=== PATIENT | male | born 1975 | race Caucasian/White ===

== ENCOUNTER 2018-10-11 19:52 | Observation (INO) | payer OTHER, SELFPAY ==
--- NOTE | 2018-10-11 20:01 | DI.RAD.S_ITS ---
PROCEDURE: XR TOE RT MIN 2V INDICATIONS: deformed TECHNIQUE: 4 views of the right second toe(s) acquired. COMPARISON: None. FINDINGS: Bones: Dislocated right second toe at the level of the proximal interphalangeal joint with likely fracture of the head of the proximal phalanx. Overlying soft tissue edema. Remaining osseous structures appear intact. No suspicious bony lesions. Soft tissues: No suspicious soft tissue densities. IMPRESSION: Dislocated right second toe at the level of the proximal interphalangeal joint with likely associated fracture at the head of the second proximal phalanx. Dictated by: Atif Veliz M.D. on 10/11/2018 at 20:29 Approved by: Atif Veliz M.D. on 10/11/2018 at 20:32
[2018-10-11 20:02] VITALS: BMI 30.4
[2018-10-11 20:17] VITALS: BP 131/8; PULSE 81; RESP 15; TEMP 37.2; O2SAT 96
[2018-10-11] MEDS: BUPIVACAINE 0.5% MDV 6 ML SUBCUT (20:30)
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
[2018-10-11] MEDS: TET,DIPH,PERTUSS(ACELL),VAC/PF 0.5 ML SYRINGE IM (20:36)
[2018-10-11] MEDS: CEFAZOLIN 2 GM/100 ML FROZ.PIGGY IV (20:42)
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
[2018-10-11 22:45] VITALS: BP 134/76; PULSE 79; RESP 19; O2SAT 96
[2018-10-12] VITALS (14 sets, daily range): BP systolic 129–157; BP diastolic 70–98; PULSE 63–78; RESP 12–18; TEMP 36.4–37; O2SAT 94–98; BMI 32.7
[2018-10-12] MEDS: HYDROCODONE/ACET 5/325 TABLET 1 TAB PO ×2 (01:02→16:07)
[2018-10-12] MEDS: SODIUM CHLORIDE 0.9% 1,000 ML 125 ML IV ×2 (01:03→09:18)
--- NOTE | 2018-10-12 01:25 | PC.NURSE ---
0018 Admitted to room 212 diagnosed with Rt. 2nd toe dislocation. Rt foot covered with dressing CDI from ER & 2nd toe protruded. RLE elevated, pt. C/O shooting pain all the way to his Rt. leg. Ice pack applied & medicated with 1 tab. Vicodin with sips of water. Advised nothing to eat or drink. Also instructed to call for assistance. not to get up OOB & his activity is bedrest for now. Showed how to use his bed controls & call light. Will cont. POC & monitor.
[2018-10-12] MEDS: MORPHINE 2 MG/ML INJ IV ×2 (03:06→10:48)
--- NOTE | 2018-10-12 04:56 | PC.NURSE ---
[address] Bucio notified that pt. C/O pain even after medicated with 1 tab. Vicodin. Orders received to admin. Morphine IVP 2 mg. for moderate pain & 4 mg. for severe pain PRN. Q2hrs. 0306 pt. requested 2 mg. of Morphine IVP & when re-assessed pain level reported is down to 5 & a little better. Will monitor.
[2018-10-12] MEDS: MORPHINE 4 MG/ML INJ IV ×2 (05:19→08:04)
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
[2018-10-12] MEDS: LACTATED RINGERS 1,000 ML 42 ML IV (12:40)
--- NOTE | 2018-10-12 12:43 | PC.NURSE ---
Pt just left for surgery around 1235. Per he is going to have a pin placed in his toe and probably be discharged back home this afternoon.
[2018-10-12] MEDS: CEFAZOLIN 2 GM/100 ML FROZ.PIGGY IV (13:02)
--- NOTE | 2018-10-12 13:19 | SUR.OPER ---
Supine on padded OR bed, head on pillow, arms secured on padded arm boards at <90 degrees abduction, legs uncrossed, right leg is under control of surgeon, safety belt at thigh, tape over blanket over left lower leg.
--- NOTE | 2018-10-12 13:34 | SUR.OPER ---
Mini C arm 0.11
[2018-10-12] MEDS: BUPIVACAINE 0.25% W/ EPI 30 ML VIAL INJ (13:35)
--- NOTE | 2018-10-12 14:09 | PM.OP.1 ---
Operative Date/Time/Diagnoses Date of procedure: 10/12/18 Time of procedure: 13:00 Pre-op diagnosis: Open dislocation of the right 2nd toe Post-op diagnosis: same Procedure & Clinicians Procedure: Irrigation and debridement of open wound. Open reduction of 2nd toe PIP joint dislocation. Percutaneous pinning. Same procedure as scheduled: Yes Indications: Open 2nd toe dislocation Surgeon: Matthew Bucio Click Yes if Unassisted: Yes Anesthesia Type: General Operative Notes Findings: Open toe dislocation with a open volar wound. No sign of any tendon injury. No sign of any foreign bodies in the wound. Closure Type: primary Specimen(s): none sent Prosthetic devices, grafts, tissues, transplants, or devices: Single K-wire Applied: implant(s) Estimated Blood Loss (mL): 5 Blood products transfused: none Procedure in detail: On date of service, patient was met in the holding area. Surgeries once again discussed and any remaining questions or concerns were answered fully. Time-out was performed verifying patient's name, procedure and operative site. Patient was taken back to the operating theater placed on the operating table in a supine position. Great care was taken to ensure that all bony prominences were appropriately padded. Tourniquet was placed up along the upper calf. Right leg was prepped and draped in the normal sterile fashion. The leg was not exsanguinated and the tourniquet was not inflated. We started by irrigating the volar wound to the 2nd toe. No sign of any foreign bodies. The flexor tendon to the toe was intact. After copious irrigation the toe was then reduced. Before reduction the flexor tendons were retracted there was no sign of any obvious soft tissue interposition. Did not see any sign of the volar plate flipped into the joint. Unless we removed it from the joint when we retracted the flexor tendons. We are able to easily reduce the joint. But with range of motion of the toe it did want to read dislocate. Due to this fact it was decided to pin the joint. Under C-arm visualization the joint was reduced and held in a reduced position while a K-wire was passed across the joint holding the overall reduction. The wound was copiously irrigated again and closed loosely with 4 O nylon. The toe and the rest of the foot was cleaned, dried, and dressed. Patient was placed into a splint and was taken to the PACU in stable condition. Complications: none Condition: stable Disposition: PACU Plan for aftercare: Patient can be weight-bearing as tolerated in the splint.
[2018-10-12] MEDS: fentaNYL 100 MCG/2 ML INJ IV (14:20)
--- NOTE | 2018-10-12 14:36 | SUR.PHASEI ---
REPORT GIVEN TO JUAN MIGUEL ELKINS, PT TOLERATING JUICE, PUDDING AND CHEESE STICK, FOOT REMAINS ELEVATED ON PILLOWS, VSS
--- NOTE | 2018-10-12 14:50 | PC.NURSE ---
Pt is back from surgery at 1415. He is A&O3. BP 140s/90s. Pt has a splint with mae wrap on his lower extremity. He had a pinning in his toe. Pt will be discharged home in a couple of hours.
--- NOTE | 2018-10-12 16:52 | PC.NURSE ---
Discharge Note- Patient discharged home. Discharge paperwork, Rx's, instructions, and education reviewed with patient and spouse and signed. Patient packed up all personal belongings. Patient left via wheelchair to private car.
== END 2018-10-12 16:25 | disposition home or self-care (01) ==
LOC: ED 22:50 → AC 23:48
PROVIDERS: Admitting Provider Orthopaedic Surgery; Emergency Provider Nurse Practitioner; Visit Provider Orthopaedic Surgery
PROC: (CPT 28666; principal; 2018-10-12 12:25)
DX: S92.911B Unspecified fracture of right toe(s), initial encounter for open fracture (principal); W23.1XXA Caught, crushed, jammed, or pinched between stationary objects, initial encounter; Y93.19 Activity, other involving water and watercraft; Y92.828 Other wilderness area as the place of occurrence of the external cause; F17.210 Nicotine dependence, cigarettes, uncomplicated; Z23 Encounter for immunization
CPT/HCPCS: 28666; 28515; 36591; 64450; 73660; 90471; 96361; 96365; 96375; 96376; 99282; 99284; G0378; 90715; J0690; J2250; J2270; J2405; J2704; J3010

== ENCOUNTER 2018-10-27 18:49 | Observation (INO) | payer OTHER, SELFPAY ==
[2018-10-12 00:27] VITALS: BMI 32.7
[2018-10-27 19:02] VITALS: BP 139/90; PULSE 89; RESP 20; TEMP 36.7; O2SAT 96
--- NOTE | 2018-10-27 19:12 | DI.RAD.S_ITS ---
PROCEDURE: XR TOE RT MIN 2V INDICATIONS: previous fx, concern infection TECHNIQUE: 3 views of the right first second and third toe(s) acquired. COMPARISON: [facility], CR, XR TOE(S) RIGHT, 10/23/2018, 9:44. [facility], CR, XR TOE RT MIN 2V, 10/11/2018, 20:01. FINDINGS: Bones: No fractures or dislocations, but there is mild soft tissue swelling adjacent to the second digit, midshaft and proximal diaphysis. No suspicious bony lesions. A K wire maintains normal alignment after reduction of dislocation of the second middle phalanx seen on plain films . Soft tissues: No suspicious soft tissue densities. IMPRESSION: Infection is not seen but early infection frequently would be not identified by plain film imaging. Followup plain films likely are warranted. Dictated by: Mahesh Blount M.D. on 10/27/2018 at 19:48 Approved by: Mahesh Blount M.D. on 10/27/2018 at 19:51
[2018-10-27 19:59] LABS: Add Manual Diff / Slide Review NO; Basophils Absolute Auto 0 /uL (0-100); Basophils Percent Auto 0.4 % (0-2); Eosinophils Absolute Auto 300 /uL (0-450); Eosinophils Percent Auto 3.3 % (2-4); Hematocrit 42.9 % (41-53); Hemoglobin 14.8 g/dL (13.5-17.5); Lymphocytes Absolute Auto 2500 /uL (1100-4500); Lymphocytes Percent Auto 25.7 % (25-40); Mean Corpuscular HGB Conc 34.6 % (30-36); Mean Corpuscular Hemoglobin 31.6 PG (26-34); Mean Corpuscular Volume 91.3 fL (80-100); Monocytes Absolute Auto 700 /uL (0-900); Monocytes Percent Auto 7.2 % (3-14); Neutrophils Absolute Auto 6300 /uL (1500-7000); Neutrophils Percent Auto 63.4 % (50-75); Platelet Count 284 X10^3/uL (150-400); Red Cell Distribution Width 13.2 % (11.6-14.8); White Blood Cell Count 9.9 X10^3/uL (4.5-11.0)
--- NOTE | 2018-10-27 20:02 | ED.SKABFB ---
HPI - Skin/Abscess/Foreign Bdy <GEO Harrison - Last Filed: 10/27/18 21:15> General Chief complaint: Skin/Abscess/Foreign Body Stated complaint: recent toe fx,top of foot Pain increase,swelling Time Seen by Provider: 10/27/18 18:50 Source: patient and family Mode of arrival: ambulatory Limitations: no limitations History of Present Illness HPI narrative: The patient is a 43-year-old male an open fracture of his right 5th toe. This was surgically repaired on 10/12 [address] a [address]-wire place. He presents because his foot has become increasingly red and painful since yesterday. He reports fevers, vomiting, illness yesterday. Of note he did go swimming in a river. He states that when he went swimming in a river, his toe was wrapped in gauze and Kerlix. He did not change this after swimming. Does note some drainage since yesterday. The patient states he finished his course of cephalexin. Related Data Home Medications Medication Instructions Recorded Confirmed ibuprofen 400 mg PO Q6H PRN 10/27/18 10/27/18 Allergies Allergy/AdvReac Type Severity Reaction Status Date / Time Penicillins [PENICILLINS] Allergy Unknown Verified 06/25/18 11:18 Review of Systems <GEO Harrison - Last Filed: 10/27/18 21:15> Review of Systems GENERAL: see HPI HEENT: Denies sinus pain, ear pain, sore throat, difficulty swallowing, dizziness. RESPIRATORY: Denies dyspnea, cough, wheezing, hemoptysis, sputum. CARDIOVASCULAR: Denies chest pain, palpitations, orthopnea, edema, GASTROINTESTINAL: Denies nausea, vomiting, abdominal pain, diarrhea, constipation, melena. : Denies dysuria, frequency, incontinence, hematuria, urinary retention. MUSCULOSKELETAL: See HPI SKIN: See HPI NEUROLOGIC: Denies weakness, headache, numbness, change in speech, confusion, seizures, incoordination. PSYCHIATRIC: No concerning psychosocial issues. 12 point review of systems is negative except for those stated above PFSH <GEO Harrison - Last Filed: 10/27/18 21:15> Medical History Chronic back pain (Chronic ~2013) Chronic pain of right lower extremity (Chronic) H/O pyloric stenosis (Chronic) Hearing loss (Chronic) Nerve pain (Chronic) Shoulder pain, left (Chronic ~2014) Vision disorder (Chronic) Surgical History Anesthesia (Resolved) H/O lateral meniscus repair of left knee (Resolved ~2011) H/O lateral meniscus repair of right knee (Resolved ~2012) History of knee surgery (Resolved ~2013) Family History Father Hypertension Cancer Mother Total knee replacement status Social History household members: family and children Smoking Status: Current every day smoker Tobacco: How many years used: 8 alcohol intake: current Family History Father Hypertension Cancer Mother Total knee replacement status Social History household members: family and children Smoking Status: Current every day smoker Tobacco: How many years used: 8 alcohol intake: current Exam <GEO Harrison - Last Filed: 10/27/18 21:15> Narrative Exam Narrative: GENERAL: This is a well-nourished, well-developed patient, in no acute distress HEAD: Atraumatic. Normocephalic. No temporal or scalp tenderness. EYES: Pupils equal round and reactive. Extraocular motions intact. No scleral icterus. No injection or drainage. ENT: Nose without bleeding, purulent drainage or septal hematoma. Throat without erythema, tonsillar hypertrophy or exudate. Uvula midline. Airway patent. NECK: Trachea midline. No JVD or lymphadenopathy. Supple, nontender, no meningeal signs. CARDIOVASCULAR: Regular rate and rhythm RESPIRATORY: Clear to auscultation. Breath sounds equal bilaterally. No wheezes, rales, or rhonchi. No cough. No increased respiratory effort. No accessory muscle use. GASTROINTESTINAL: Abdomen soft, non-tender, nondistended. No hepato-splenomegaly, or palpable masses. No guarding. EXTREMITIES: Skin exam as documented. K-wire in place right 2nd toe. Pain to palpation right 2nd toe. BACK: Nontender without deformity or crepitance. No flank tenderness. NEURO: AOx3. SKIN: Erythematous 2nd toe of right foot, K-wire in place, erythema extending from right toe up over dorsal aspect of foot. Outlined in skin marker. Initial Vital Signs Initial Vital Signs: Vital Signs Temperature 98.0 F 10/27/18 19:02 Pulse Rate 89 10/27/18 19:02 Respiratory Rate 20 10/27/18 19:02 Blood Pressure 139/90 10/27/18 19:02 Pulse Oximetry 96 10/27/18 19:02 <Eyal Avila DO - Last Filed: 10/28/18 04:58> Initial Vital Signs Initial Vital Signs: Vital Signs Temperature 98.0 F 10/27/18 19:02 Pulse Rate 89 10/27/18 19:02 Respiratory Rate 20 10/27/18 19:02 Blood Pressure 139/90 10/27/18 19:02 Pulse Oximetry 96 10/27/18 19:02 Course <GEO Harrison - Last Filed: 10/27/18 21:15> Orders Ordered: ED Orders 10/27/18 21:25 Wound Culture and Gram Stain Stat Lactated Ringer's (Lactated Ringers) 1,000 mls @ 75 mls/hr IV CONT TRENT Last Admin: 10/27/18 23:00 Dose: 75 mls/hr Oxycodone HCl (Percolone) 5 mg PO Q3HR PRN PRN Reason: Pain, Moderate (4-6) Last Admin: 10/28/18 00:08 Dose: 5 mg Discontinued Medications Piperacillin/Tazobactam/Dextrose (Zosyn) 3.375 gm in 50 mls @ 100 mls/hr IV NOW ONE Stop: 10/27/18 21:33 Last Infusion: 10/27/18 21:51 Dose: 0 mls/hr Admin: 10/27/18 21:23 Dose: 100 mls/hr Vancomycin HCl/Dextrose (Vancomycin) 1,500 mg in 300 mls @ 200 mls/hr IV NOW ONE Stop: 10/27/18 22:33 Last Infusion: 10/27/18 21:59 Dose: 200 mls/hr Admin: 10/27/18 21:51 Dose: 200 mls/hr Ketorolac Tromethamine (Toradol) 30 mg IV NOW ONE Stop: 10/27/18 19:53 Last Admin: 10/27/18 20:15 Dose: 30 mg Morphine Sulfate (Morphine) 4 mg IV NOW ONE Stop: 10/27/18 21:06 Last Admin: 10/27/18 21:23 Dose: 4 mg Vital Signs - 8 hr 10/27/18 21:30 10/27/18 21:55 10/27/18 22:07 Temperature 97.7 F Pulse Rate 72 74 71 Respiratory Rate 16 16 18 Blood Pressure 140/89 Blood Pressure [Right Arm] 137/90 124/75 Pulse Oximetry 97 98 97 10/28/18 03:29 Temperature 97.4 F L Pulse Rate 69 Respiratory Rate 18 Blood Pressure 130/75 Blood Pressure [Right Arm] Pulse Oximetry 95 <Eyal Avila DO - Last Filed: 10/28/18 04:58> Orders Ordered: ED Orders 10/27/18 21:25 Wound Culture and Gram Stain Stat Lactated Ringer's (Lactated Ringers) 1,000 mls @ 75 mls/hr IV CONT TRENT Last Admin: 10/27/18 23:00 Dose: 75 mls/hr Oxycodone HCl (Percolone) 5 mg PO Q3HR PRN PRN Reason: Pain, Moderate (4-6) Last Admin: 10/28/18 00:08 Dose: 5 mg Discontinued Medications Piperacillin/Tazobactam/Dextrose (Zosyn) 3.375 gm in 50 mls @ 100 mls/hr IV NOW ONE Stop: 10/27/18 21:33 Last Infusion: 10/27/18 21:51 Dose: 0 mls/hr Admin: 10/27/18 21:23 Dose: 100 mls/hr Vancomycin HCl/Dextrose (Vancomycin) 1,500 mg in 300 mls @ 200 mls/hr IV NOW ONE Stop: 10/27/18 22:33 Last Infusion: 10/27/18 21:59 Dose: 200 mls/hr Admin: 10/27/18 21:51 Dose: 200 mls/hr Ketorolac Tromethamine (Toradol) 30 mg IV NOW ONE Stop: 10/27/18 19:53 Last Admin: 10/27/18 20:15 Dose: 30 mg Morphine Sulfate (Morphine) 4 mg IV NOW ONE Stop: 10/27/18 21:06 Last Admin: 10/27/18 21:23 Dose: 4 mg Vital Signs - 8 hr 10/27/18 21:30 10/27/18 21:55 10/27/18 22:07 Temperature 97.7 F Pulse Rate 72 74 71 Respiratory Rate 16 16 18 Blood Pressure 140/89 Blood Pressure [Right Arm] 137/90 124/75 Pulse Oximetry 97 98 97 10/28/18 03:29 Temperature 97.4 F L Pulse Rate 69 Respiratory Rate 18 Blood Pressure 130/75 Blood Pressure [Right Arm] Pulse Oximetry 95 MDM - Skin/Abscess/Foreign Bdy <ALONDRA Harrison-BC - Last Filed: 10/27/18 21:15> Lab Data Result diagrams: 10/27/18 19:47 10/27/18 19:47 Lab Results 10/27/18 10/27/18 10/27/18 Range/Units 19:47 19:47 19:47 WBC 9.9 (4.5-11.0) X10^3/uL RBC 4.70 (4.5-5.9) X10^6/uL Hgb 14.8 (13.5-17.5) g/dL Hct 42.9 (41-53) % MCV 91.3 (80-100) fL MCH 31.6 (26-34) PG MCHC 34.6 (30-36) % RDW 13.2 (11.6-14.8) % Plt Count 284 (150-400) X10^3/uL Neut % (Auto) 63.4 (50-75) % Lymph % (Auto) 25.7 (25-40) % Carver % (Auto) 7.2 (3-14) % Eos % (Auto) 3.3 (2-4) % Baso % (Auto) 0.4 (0-2) % Neut # (Auto) 6300 (4504-5637) /uL Lymph # (Auto) 2500 (5639-9341) /uL Carver # (Auto) 700 (0-900) /uL Eos # (Auto) 300 (0-450) /uL Baso # (Auto) 0 (0-100) /uL ESR (0-15) MM/HR Sodium 138 (137-145) mmol/L Potassium 3.9 (3.4-5.1) mmol/L Chloride 99 (98-107) mmol/L Carbon Dioxide 30 (22-32) mmol/L BUN 17 (9-20) mg/dL Creatinine 0.70 (0.66-1.25) mg/dL Estimated GFR > 60.0 (>60) mL/min BUN/Creatinine Ratio 24.3 H (6-22) Glucose 83 (70-100) mg/dL Lactate (0.7-2.1) mmol/L Calcium 9.1 (8.4-10.2) mg/dL Total Bilirubin 0.4 (0.2-1.3) mg/dL AST 43 (17-59) IU/L ALT 31 (21-72) IU/L Alkaline Phosphatase 69 (38-126) U/L C-Reactive Protein (<1.0) mg/dL Total Protein 7.4 (6.3-8.2) g/dL Albumin 4.4 (3.5-5.0) g/dL Globulin 3.0 (1.7-4.1) g/dL Albumin/Globulin Ratio 1.5 (1.0-2.8) Procalcitonin < 0.05 (<0.5) ng/mL 10/27/18 10/27/18 10/27/18 Range/Units 19:47 19:47 19:47 WBC (4.5-11.0) X10^3/uL RBC (4.5-5.9) X10^6/uL Hgb (13.5-17.5) g/dL Hct (41-53) % MCV (80-100) fL MCH (26-34) PG MCHC (30-36) % RDW (11.6-14.8) % Plt Count (150-400) X10^3/uL Neut % (Auto) (50-75) % Lymph % (Auto) (25-40) % Carver % (Auto) (3-14) % Eos % (Auto) (2-4) % Baso % (Auto) (0-2) % Neut # (Auto) (1971-0305) /uL Lymph # (Auto) (0599-0288) /uL Carver # (Auto) (0-900) /uL Eos # (Auto) (0-450) /uL Baso # (Auto) (0-100) /uL ESR 11 (0-15) MM/HR Sodium (137-145) mmol/L Potassium (3.4-5.1) mmol/L Chloride (98-107) mmol/L Carbon Dioxide (22-32) mmol/L BUN (9-20) mg/dL Creatinine (0.66-1.25) mg/dL Estimated GFR (>60) mL/min BUN/Creatinine Ratio (6-22) Glucose (70-100) mg/dL Lactate 0.8 (0.7-2.1) mmol/L Calcium (8.4-10.2) mg/dL Total Bilirubin (0.2-1.3) mg/dL AST (17-59) IU/L ALT (21-72) IU/L Alkaline Phosphatase (38-126) U/L C-Reactive Protein 2.8 H (<1.0) mg/dL Total Protein (6.3-8.2) g/dL Albumin (3.5-5.0) g/dL Globulin (1.7-4.1) g/dL Albumin/Globulin Ratio (1.0-2.8) Procalcitonin (<0.5) ng/mL Imaging Data Toe x-ray: Radiologist's impression: Praneeth Man 43 M [address] [address] XRay Report Signed Patient: Praneeth Man [facility]#: [id number] : 1975Acct:[id number] Age/Sex: 43 / MDate of Service: 10/27/18 Loc: ED Accession Number: [id number] Procedure: XR toe RT min 2V Ordering Provider: Bere Martines- PROCEDURE: XR TOE RT MIN 2V INDICATIONS: previous fx, concern infection TECHNIQUE: 3 views of the right first second and third toe(s) acquired. COMPARISON: [facility], CR, XR TOE(S) RIGHT, 10/23/2018, 9:44. [facility], CR, XR TOE RT MIN 2V, 10/11/2018, 20:01. FINDINGS: Bones: No fractures or dislocations, but there is mild soft tissue swelling adjacent to the second digit, midshaft and proximal diaphysis. No suspicious bony lesions. A K wire maintains normal alignment after reduction of dislocation of the second middle phalanx seen on plain films . Soft tissues: No suspicious soft tissue densities. IMPRESSION: Infection is not seen but early infection frequently would be not identified by plain film imaging. Followup plain films likely are warranted. Dictated by: Mahesh Blount M.D. on 10/27/2018 at 19:48 Approved by: Mahesh Blount M.D. on 10/27/2018 at 19:51 [facility] Narrative Medical decision making narrative: The patient is a 43 year male who presents with a chief complaint of a pain and erythema postoperative from Orthopedic surgery. The patient's exam is concerning for postoperative infection, possibly related to swimming in the river water with a K-wire in place. I spoke with Dr. Dickerson, who is on-call for [facility]. The K-wire was removed per her instructions without incident. Wound culture was taken. The patient was started on vanc and Zosyn. The patient states he does have an occasional rash from penicillins, but that is not hives and not anaphylaxis. Thus we elected to proceed with Zosyn treatment. The patient was admitted to Dr. Dickerson, placed under observation status. The patient states understanding and has no questions or concerns regarding this.. <Eyal Avila, DO - Last Filed: 10/28/18 04:58> Lab Data Lab Results 10/27/18 10/27/18 10/27/18 Range/Units 19:47 19:47 19:47 WBC 9.9 (4.5-11.0) X10^3/uL RBC 4.70 (4.5-5.9) X10^6/uL Hgb 14.8 (13.5-17.5) g/dL Hct 42.9 (41-53) % MCV 91.3 (80-100) fL MCH 31.6 (26-34) PG MCHC 34.6 (30-36) % RDW 13.2 (11.6-14.8) % Plt Count 284 (150-400) X10^3/uL Neut % (Auto) 63.4 (50-75) % Lymph % (Auto) 25.7 (25-40) % Carver % (Auto) 7.2 (3-14) % Eos % (Auto) 3.3 (2-4) % Baso % (Auto) 0.4 (0-2) % Neut # (Auto) 6300 (6266-7798) /uL Lymph # (Auto) 2500 (5365-1807) /uL Carver # (Auto) 700 (0-900) /uL Eos # (Auto) 300 (0-450) /uL Baso # (Auto) 0 (0-100) /uL ESR (0-15) MM/HR Sodium 138 (137-145) mmol/L Potassium 3.9 (3.4-5.1) mmol/L Chloride 99 (98-107) mmol/L Carbon Dioxide 30 (22-32) mmol/L BUN 17 (9-20) mg/dL Creatinine 0.70 (0.66-1.25) mg/dL Estimated GFR > 60.0 (>60) mL/min BUN/Creatinine Ratio 24.3 H (6-22) Glucose 83 (70-100) mg/dL Lactate (0.7-2.1) mmol/L Calcium 9.1 (8.4-10.2) mg/dL Total Bilirubin 0.4 (0.2-1.3) mg/dL AST 43 (17-59) IU/L ALT 31 (21-72) IU/L Alkaline Phosphatase 69 (38-126) U/L C-Reactive Protein (<1.0) mg/dL Total Protein 7.4 (6.3-8.2) g/dL Albumin 4.4 (3.5-5.0) g/dL Globulin 3.0 (1.7-4.1) g/dL Albumin/Globulin Ratio 1.5 (1.0-2.8) Procalcitonin < 0.05 (<0.5) ng/mL 10/27/18 10/27/18 10/27/18 Range/Units 19:47 19:47 19:47 WBC (4.5-11.0) X10^3/uL RBC (4.5-5.9) X10^6/uL Hgb (13.5-17.5) g/dL Hct (41-53) % MCV (80-100) fL MCH (26-34) PG MCHC (30-36) % RDW (11.6-14.8) % Plt Count (150-400) X10^3/uL Neut % (Auto) (50-75) % Lymph % (Auto) (25-40) % Carver % (Auto) (3-14) % Eos % (Auto) (2-4) % Baso % (Auto) (0-2) % Neut # (Auto) (9889-9213) /uL Lymph # (Auto) (0512-0147) /uL Carver # (Auto) (0-900) /uL Eos # (Auto) (0-450) /uL Baso # (Auto) (0-100) /uL ESR 11 (0-15) MM/HR Sodium (137-145) mmol/L Potassium (3.4-5.1) mmol/L Chloride (98-107) mmol/L Carbon Dioxide (22-32) mmol/L BUN (9-20) mg/dL Creatinine (0.66-1.25) mg/dL Estimated GFR (>60) mL/min BUN/Creatinine Ratio (6-22) Glucose (70-100) mg/dL Lactate 0.8 (0.7-2.1) mmol/L Calcium (8.4-10.2) mg/dL Total Bilirubin (0.2-1.3) mg/dL AST (17-59) IU/L ALT (21-72) IU/L Alkaline Phosphatase (38-126) U/L C-Reactive Protein 2.8 H (<1.0) mg/dL Total Protein (6.3-8.2) g/dL Albumin (3.5-5.0) g/dL Globulin (1.7-4.1) g/dL Albumin/Globulin Ratio (1.0-2.8) Procalcitonin (<0.5) ng/mL Discharge Plan Departure Patient Disposition: Admitted as Observation Clinical Impression: Post-operative infection Qualifiers: Encounter type: initial encounter Postoperative infection type: unspecified type Qualified Code(s): T81.40XA - Infection following a procedure, unspecified, initial encounter Discharge Date/Time: 10/27/18 22:00 Interventions: ED Discharge Assessment Last Done: 10/27/18 21:58 Admit Date/Time: 10/27/18 20:47 Admit Provider: Bobbi Dolan <Eyal Avila DO - Last Filed: 10/28/18 04:58> Cosign ED Attending Cosignature Attestation: I was immediately available in the department for consultation. Documentation has been reviewed. I agree with assessment and plan.
[2018-10-27 20:08] LABS: Lactate (Lactic Acid) 0.8 mmol/L (0.7-2.1)
[2018-10-27 20:12] LABS: Alanine Aminotransferase 31 IU/L (21-72); Albumin 4.4 g/dL (3.5-5.0); Albumin Globulin Ratio 1.5 (1.0-2.8); Alkaline Phosphatase 69 U/L (38-126); Aspartate Aminotransferase 43 IU/L (17-59); BUN Creatinine Ratio 24.3 (6-22); Bilirubin Total 0.4 mg/dL (0.2-1.3); Blood Urea Nitrogen 17 mg/dL (9-20); Calcium 9.1 mg/dL (8.4-10.2); Carbon Dioxide 30 mmol/L (22-32); Chloride 99 mmol/L (98-107); Estimated Glomerular Filt Rate > 60.0 mL/min (>60); Glucose 83 mg/dL (70-100); HEMOLYSIS < 15 (0-50); Potassium 3.9 mmol/L (3.4-5.1); Sodium 138 mmol/L (137-145); Total Protein 7.4 g/dL (6.3-8.2)
[2018-10-27] MEDS: KETOROLAC 60 MG/2 ML VIAL 30 MG IV (20:15)
[2018-10-27 20:16] LABS: C-Reactive Protein Quant 2.8 mg/dL (<1.0)
[2018-10-27 20:22] VITALS: BP 129/76; PULSE 78; RESP 18; O2SAT 97
[2018-10-27 20:31] LABS: Procalcitonin < 0.05 ng/mL (<0.5)
[2018-10-27 20:32] LABS: Erythrocyte Sedimentation Rate 11 MM/HR (0-15)
[2018-10-27] MEDS: PIPERACILLIN-TAZO 3.375 GM/50 ML FROZ.PIGGY IV (21:23)
[2018-10-27] MEDS: MORPHINE 4 MG/ML INJ IV (21:23)
--- NOTE | 2018-10-27 21:28 | PC.NURSE ---
report called to feliciano, inpatient rn, will get 1st antibx started, then transport
[2018-10-27 21:30] VITALS: BP 137/90; PULSE 72; RESP 16; O2SAT 97
[2018-10-27] MEDS: VANCOMYCIN 1,500 MG/300 ML FROZ.PIGGY 200 MG IV (21:51)
[2018-10-27 21:55] VITALS: BP 124/75; PULSE 74; RESP 16; O2SAT 98
[2018-10-27 22:07] VITALS: BP 140/89; PULSE 71; RESP 18; TEMP 36.5; O2SAT 97
[2018-10-27 22:09] VITALS: BMI 32.2
--- NOTE | 2018-10-27 22:21 | PC.ADMIT ---
Pt to AC from ER, transferred via stretcher. Pain 3/10, decreased since pain meds administered in ER. Oriented to room/call light. Denies need to lock any belongings in safe. Bed alarm on. [address] Admission Note: The patient,Praneeth Man,43 y/o, was given written information regarding hospital policies, unit procedures and contact persons. Patient's smoking status: Current every day smoker. Vital Signs - 8 hr 10/27/18 19:02 10/27/18 20:22 10/27/18 21:30 Temperature 98.0 F Pulse Rate 89 78 72 Respiratory Rate 20 18 16 Blood Pressure 139/90 Blood Pressure [Left Arm] 129/76 Blood Pressure [Right Arm] 137/90 Pulse Oximetry 96 97 97 10/27/18 21:55 Temperature Pulse Rate 74 Respiratory Rate 16 Blood Pressure Blood Pressure [Left Arm] Blood Pressure [Right Arm] 124/75 Pulse Oximetry 98
[2018-10-27] MEDS: LACTATED RINGERS 1,000 ML 75 ML IV (23:00)
--- NOTE | 2018-10-27 23:21 | PC.NURSE ---
Evening Shift Note- Patient arrived to room via stretcher at 2205 from ER. Patient able to walk on his own from stretcher to bed. Admission questions done, home medications reviewed, and physical assessment completed. Patient oriented to bed and bed controls, room, bathroom, lights, menu, and call liang/tv remote. No complaints of pain or discomfort. No complaints of N/V. Elevated RLE up on pillow, place cradle on bed to keep blanket off foot. ER reported reddness to right foot that was marked, No redness noted with assessement at this time. IV fluids started as ordered. Safety measures in place. Patient agree to call for assistance. call garth and diego within reach. will continue to monitor.
[2018-10-28] MEDS: OXYCODONE IR 5 MG TABLET PO ×3 (00:08→11:42)
--- NOTE | 2018-10-28 03:27 | PC.NURSE ---
Shift note: Pt's preliminary micro shows gram positive cocci, pt put on contact precautions pending culture and sensitivities to r/o MRSA.
[2018-10-28 03:29] VITALS: BP 130/75; PULSE 69; RESP 18; TEMP 36.3; O2SAT 95
[2018-10-28] MEDS: PIPERACILLIN-TAZO 3.375 GM/50 ML FROZ.PIGGY IV (08:05)
--- NOTE | 2018-10-28 08:28 | PM.HP.1 ---
History of Present Illness Date Patient Seen: 10/28/18 Time Patient Seen: 08:28 Chief complaint: recent toe fx,top of foot Pain increase,swelling Narrative: Patient is a 43-year-old male with a history of a open right 2nd toe PIP dislocation status post irrigation debridement and pinning by Dr. Bucio on 10/12/2018. Patient states his wound had healed and sutures had been removed. His pin was retained. He does think it was starting to get red before but then 1 day prior to admission the patient went swimming in the river with his K-wire in place. After that time he experienced more pain more swelling and redness extending up the toe and over the dorsum of the foot. Denies any fevers or chills. Presented to the emergency room where he was found to have elevated inflammatory markers CRP 2.8. He was afebrile but had a cellulitis over the 2nd toe extending up over the dorsum of the foot with areas demarcated an ascending fashion. There was small amount of purulence drainage at the pin site. Patient received vancomycin and Zosyn in the emergency room and is admitted for observation. At the request the orthopedic surgeon the K-wire was removed. On evaluation this morning patient does state that his pain has improved and the swelling and erythema does seem to be improving after antibiotics Patient History Medical History Chronic back pain (Chronic ~2013) Chronic pain of right lower extremity (Chronic) H/O pyloric stenosis (Chronic) Hearing loss (Chronic) Nerve pain (Chronic) Shoulder pain, left (Chronic ~2014) Vision disorder (Chronic) Surgical History Anesthesia (Resolved) H/O lateral meniscus repair of left knee (Resolved ~2011) H/O lateral meniscus repair of right knee (Resolved ~2012) History of knee surgery (Resolved ~2013) Family History Father Hypertension Cancer Mother Total knee replacement status Social History household members: family and children Smoking Status: Current every day smoker Tobacco: How many years used: 8 alcohol intake: current Family & Social History Family History Father Hypertension Cancer Mother Total knee replacement status Social History: household members family,children Prior Living Arrangements House Safety & Behavioral: Feels Safe in Current Yes Environment Been Physically Hurt or No Threatened By a Person Suicidal Ideation Description None Tobacco & Substance use: Tobacco type cigarettes Smoking Status Current every day smoker alcohol intake current alcohol intake frequency a few times a week Substance Use Type does not use Meds Home Medications Medication Instructions Recorded Confirmed Type ibuprofen 400 mg PO Q6H PRN 10/27/18 10/27/18 History Allergies Allergy/AdvReac Type Severity Reaction Status Date / Time Penicillins [PENICILLINS] Allergy Unknown Verified 06/25/18 11:18 Review of Systems Review of Systems Denies fevers chills nausea vomiting. Endorses pain swelling erythema the right foot as described. All systems reviewed & are unremarkable except as noted in HPI and below Exam Vital Signs (past 8 hours): - 10/28/18 03:29 Temperature 97.4 F L Pulse Rate 69 Respiratory Rate 18 Blood Pressure 130/75 Pulse Oximetry 95 Oxygen Delivery Method Room Air Narrative Exam Narrative: Alert oriented male in no acute distress lungs clear to auscultation bilaterally. Heart regular rate and rhythm. Vital signs stable. Afebrile. Abdomen soft nontender moving in all extremities. 5/5 strength and normal range of motion. Right foot 2nd toe shows moderate swelling and erythema has receded within demarcation lines over the dorsum of the foot. No fluctuance. No expressible drainage. There is small amount of dried drainage at the site of the pin removal dorsally. Toe in good clinical alignment. Sensation grossly intact to light touch. Brisk capillary refill Objective Labs Result Diagrams: 10/27/18 19:47 10/27/18 19:47 Labs: Laboratory Results - last 24 hr 10/27/18 10/27/18 10/27/18 19:47 19:47 19:47 WBC 9.9 RBC 4.70 Hgb 14.8 Hct 42.9 MCV 91.3 MCH 31.6 MCHC 34.6 RDW 13.2 Plt Count 284 Neut % (Auto) 63.4 Lymph % (Auto) 25.7 [place] % (Auto) 7.2 Eos % (Auto) 3.3 Baso % (Auto) 0.4 Neut # (Auto) 6300 Lymph # (Auto) 2500 [place] # (Auto) 700 Eos # (Auto) 300 Baso # (Auto) 0 ESR Sodium 138 Potassium 3.9 Chloride 99 Carbon Dioxide 30 BUN 17 Creatinine 0.70 Estimated GFR > 60.0 BUN/Creatinine Ratio 24.3 H Glucose 83 Lactate Calcium 9.1 Total Bilirubin 0.4 AST 43 ALT 31 Alkaline Phosphatase 69 C-Reactive Protein Total Protein 7.4 Albumin 4.4 Globulin 3.0 Albumin/Globulin Ratio 1.5 Procalcitonin < 0.05 10/27/18 10/27/18 10/27/18 19:47 19:47 19:47 WBC RBC Hgb Hct MCV MCH MCHC RDW Plt Count Neut % (Auto) Lymph % (Auto) [place] % (Auto) Eos % (Auto) Baso % (Auto) Neut # (Auto) Lymph # (Auto) [place] # (Auto) Eos # (Auto) Baso # (Auto) ESR 11 Sodium Potassium Chloride Carbon Dioxide BUN Creatinine Estimated GFR BUN/Creatinine Ratio Glucose Lactate 0.8 Calcium Total Bilirubin AST ALT Alkaline Phosphatase C-Reactive Protein 2.8 H Total Protein Albumin Globulin Albumin/Globulin Ratio Procalcitonin Assessment & Plan (1) Cellulitis of foot: Problem details: Patient has right foot and 2nd toe cellulitis. He was exposed to river water with a K-wire in place and has a history of an open dislocation of his PIP joint. We discussed that in the face of infection the wire must be removed. We discussed this may lead to a reduce placement and permanent hammertoe deformity of the toe. This may be prevented by briana taping. If deformity does develop then late correction of the deformity can be performed through a PIP fusion or arthroplasty. We discussed the focus at this time is eradication of infection and prevent any deep infection or osteomyelitis. The patient will receive another dose of IV antibiotics and if continues to improve will be discharged on oral antibiotics this afternoon. Patient will have a wound check in 1 week. Patient understands and agrees with the plan. We discussed that refer water contamination can be a potentially serious infection but at this time the patient has no evidence of abscess or indication for open debridement. Wound culture from the ER growing GPCs Will discharge on coverage for both staph and Pseudomonas Bactrim DS b.i.d. x2 weeks Ciprofloxacin 750 mg p.o. b.i.d. x2 weeks Weight bear as tolerated Current visit: Yes Status: Acute Quality VTE Deep Vein Thrombosis/Pulmonary Embolism Present on Admission: No
[2018-10-28 09:00] VITALS: BP 104/69; PULSE 64; RESP 16; TEMP 36.6; O2SAT 96
[2018-10-28] MEDS: VANCOMYCIN 1,500 MG/300 ML FROZ.PIGGY 200 MG IV (09:23)
--- NOTE | 2018-10-28 11:45 | PC.NURSE ---
Discharge Pt states pain controlled with oxy. up independently in room, pt safe to stand up by himself. no drainage on toe. Redness receded well within demarcation on foot. Received one final dose of IV vanco and zosyn. Tolerated without issue. PIV removed prior to d/c. d/c instructions provided to pt. Aware to contact MD to make f/u apt in 1 week and also if any questions or concerns. Pt states he took all belongings with him. left in w/c with [employer] escort.
--- NOTE | 2018-10-28 17:08 | CM.DANOTE ---
Discharge Planning/Care Management DCP: assessment: case received, EMR reviewed. Discussed in Team Rounds. Pt is a 43 year old male who admitted last night to care orthopedic surgeon Dr. Johnathan Dolan. Payer: [employer] RN coordinator Emily Berrios confirmed that pt was up independently in room and was just to have a final IV antibiotic dose this morning and then would go home on oral antibiotics later in the afternoon. A check in early afternoon showed that pt had left for home setting at 1145. Care team members noted no d/c planning concerns. He will follow up in clinic. Advanced directive, confirm from FAMILY Start: 10/27/18 22:19 Freq: Q24H Status: Discharge Protocol: Document 10/27/18 22:19 AGW (Rec: 10/27/18 23:17 AGW [id number]) Advance Directive, confirm on record Time 22:00 Person contacted patient Copy received No CM Discharge Assessment Start: 10/28/18 17:07 Freq: Status: Active Protocol: Document 10/28/18 17:07 ITV (Rec: 10/28/18 17:08 ITV [id number]) Discharge Planning Assessment Advance Directives? No Advance Directives on File No History Provided By Medical Record Prior Living Arrangements House Household Members family children Independent with ADL's Yes Is patient alert and oriented? Yes Review Status In Process
== END 2018-10-28 11:45 | disposition home or self-care (01) ==
LOC: ED 18:52 → AC 20:48
PROVIDERS: Admitting Provider Orthopaedic Surgery Foot and Ankle Surgery; Emergency Provider Nurse Practitioner Family; Visit Provider Orthopaedic Surgery Foot and Ankle Surgery
DX: L03.031 Cellulitis of right toe (principal); B96.89 Other specified bacterial agents as the cause of diseases classified elsewhere; S93.11 Dislocation of interphalangeal joint; F17.200 Nicotine dependence, unspecified, uncomplicated
CPT/HCPCS: 36591; 73660; 80053; 83605; 84145; 85025; 85651; 86140; 87070; 87075; 87077; 87147; 87186; 87205; 96365; 96375; 99283; 99284; G0378; J1885; J2270; J2543

== ENCOUNTER → 2019-06-04 16:00 | Outpatient (CLI) | payer OTHER, SELFPAY ==
[2019-06-04 17:10] LABS: Influenza A - CEPHEID Flu A NEGATIVE (NEGATIVE); Influenza B - CEPHEID Flu B NEGATIVE (NEGATIVE)
[2019-06-06 04:07] LABS: COVID19 Sendout Not Detected (Not Detected)
== END ==
PROVIDERS: Visit Provider Physician Assistant
DX: Z20.828 Contact with and (suspected) exposure to other viral communicable diseases (principal)
CPT/HCPCS: 87502; 87635

== ENCOUNTER 2020-03-20 11:59 | Emergency (ER) | payer OTHER, MEDICAID, SELFPAY ==
[2020-03-20] VITALS (12 sets, daily range): BP systolic 131–168; BP diastolic 79–106; PULSE 78–88; RESP 16–25; TEMP 36.9; O2SAT 95–99; BMI 30.8
--- NOTE | 2020-03-20 12:07 | DI.RAD.S_ITS ---
PROCEDURE: XR CHEST 1V INDICATIONS: chest pain TECHNIQUE: One view of the chest was acquired. COMPARISON: [facility], , CHEST 2 VIEW, 12/05/2016, 18:21. FINDINGS: Surgical changes and devices: None. Lungs and pleura: Lungs are clear. No pleural effusions or pneumothorax. Mediastinum: Mediastinal contours appear normal. Heart size is normal. Bones and chest wall: No suspicious bony lesions. Overlying soft tissues appear unremarkable. IMPRESSION: No acute cardiopulmonary abnormality. Dictated by: Kike Mcqueen M.D. on 03/20/2020 at 12:39 Approved by: Kike Mcqueen M.D. on 03/20/2020 at 12:40
[2020-03-20 12:24] LABS: Add Manual Diff / Slide Review NO; Basophils Absolute Auto 100 /uL (0-100); Eosinophils Absolute Auto 200 /uL (0-450); Eosinophils Percent Auto 2.5 % (2-4); Hematocrit 44.8 % (41-53); Hemoglobin 15.6 g/dL (13.5-17.5); Lymphocytes Absolute Auto 2500 /uL (1100-4500); Lymphocytes Percent Auto 26.9 % (25-40); Mean Corpuscular HGB Conc 34.7 % (30-36); Mean Corpuscular Hemoglobin 31.3 PG (26-34); Mean Corpuscular Volume 90.1 fL (80-100); Monocytes Absolute Auto 1000 /uL (0-900); Monocytes Percent Auto 10.1 % (3-14); Neutrophils Absolute Auto 5600 /uL (1500-7000); Neutrophils Percent Auto 59.5 % (50-75); Platelet Count 266 X10^3/uL (150-400); Red Blood Cell Count 4.97 X10^6/uL (4.5-5.9); Red Cell Distribution Width 13.1 % (11.6-14.8); White Blood Cell Count 9.4 X10^3/uL (4.5-11.0)
[2020-03-20 12:27] LABS: INR 0.9 (0.9-1.3); Prothrombin Time 10.9 SECONDS (10.1-12.7)
[2020-03-20 12:30] LABS: PTT Partial Thromboplastin Tim 33 SECONDS (26.4-36.2)
[2020-03-20 12:58] LABS: Alanine Aminotransferase 23 IU/L (<50); Albumin 4.6 g/dL (3.5-5.0); Albumin Globulin Ratio 1.4 (1.0-2.8); Alkaline Phosphatase 57 U/L (38-126); Aspartate Aminotransferase 37 IU/L (17-59); Bilirubin Total 0.6 mg/dL (0.2-1.3); Blood Urea Nitrogen 19 mg/dL (9-20); Calcium 9.5 mg/dL (8.4-10.2); Carbon Dioxide 27 mmol/L (22-32); Chloride 104 mmol/L (98-107); Creatine Kinase 126 U/L (55-170); Estimated Glomerular Filt Rate > 60.0 mL/min (>60); Globulin 3.3 g/dL (1.7-4.1); Glucose 100 mg/dL (70-100); Lipase 56 U/L (23-300); Potassium 4.3 mmol/L (3.4-5.1); Sodium 136 mmol/L (137-145); Total Protein 7.9 g/dL (6.3-8.2)
--- NOTE | 2020-03-20 13:01 | ED_ITS ---
HPI - Chest Pain <ALONDRA Harrison-BC - Last Filed: 03/20/20 15:55> General Chief Complaint: Chest Pain Stated Complaint: Chest Pain Time Seen by Provider: 03/20/20 12:27 Source: patient Mode of arrival: Ambulatory Limitations: no limitations History of Present Illness HPI narrative: The patient is a 45-year-old male current smoker with history of cellulitis of the foot and postoperative infection who presents with a chief complain of chest pain that started yesterday. He states it hurts at his sternum, nonradiating. Hurts worse to press on it, move and with pressure and change of position. He states it hurts when he takes a deep breath in his sternum. Denies any fevers nausea vomiting or diarrhea. Developed a cough this morning denies any palpitations or swelling of his extremities. Denies any lightheadedness or dizziness. Has tried ibuprofen and Aleve at the same time for the pain, last dose this morning with no improvement. Related Data Previous Rx's Medication Instructions Recorded albuterol sulfate 90 mcg/actuation 2 puff INHALATION Q4-6H PRN #18 06/04/19 aerosol inhaler gram hydrocodone-acetaminophen [Waverly] 1 tab PO Q4-6H PRN #10 tab 03/20/20 ketorolac 10 mg PO TID PRN #15 tab 03/20/20 lidocaine 1 patch TOPICAL DAILY PRN #15 ea 03/20/20 Allergies Allergy/AdvReac Type Severity Reaction Status Date / Time Penicillins [PENICILLINS] Allergy Unknown Verified 03/20/20 12:03 Review of Systems <GEO Harrison - Last Filed: 03/20/20 15:55> Review of Systems Narrative: GENERAL: Denies chills, fatigue, malaise, fever, sweats. HEENT: Denies sinus pain, ear pain, sore throat, difficulty swallowing, dizziness. RESPIRATORY: Denies dyspnea, cough, wheezing, hemoptysis, sputum. CARDIOVASCULAR: See HPI GASTROINTESTINAL: Denies nausea, vomiting, abdominal pain, diarrhea, constipation, melena. : Denies dysuria, frequency, incontinence, hematuria, urinary retention. MUSCULOSKELETAL: See HPI SKIN: Denies rash, skin lesions, or other NEUROLOGIC: Denies weakness, headache, numbness, change in speech, confusion, seizures, incoordination. PSYCHIATRIC: No concerning psychosocial issues. 12 point review of systems is negative except for those stated above Patient History <GEO Harrison - Last Filed: 03/20/20 15:55> Medical History (Updated 03/20/20 @ 15:51 by GEO Harrison) Chronic back pain (~2013) Chronic pain of right lower extremity H/O pyloric stenosis Hearing loss Nerve pain Shoulder pain, left (~2014) Vision disorder Surgical History Anesthesia H/O lateral meniscus repair of left knee (~2011) H/O lateral meniscus repair of right knee (~2012) History of knee surgery (~2013) Family History Father Hypertension Cancer Mother Total knee replacement status Social History household members: family and children Smoking Status: Current every day smoker Tobacco: How many years used: 8 alcohol intake: current Smoking Status: Current every day smoker alcohol intake frequency: a few times a week Substance Use Type: does not use Exam <GEO Harrison - Last Filed: 03/20/20 15:55> Narrative Exam Narrative: GENERAL: This is a well-nourished, well-developed patient, in no acute distress HEAD: Atraumatic. Normocephalic. No temporal or scalp tenderness. EYES: Pupils equal round and reactive. Extraocular motions intact. No scleral icterus. No injection or drainage. ENT: Nose without bleeding, purulent drainage or septal hematoma. Throat without erythema, tonsillar hypertrophy or exudate. Uvula midline. Airway patent. NECK: Trachea midline. No JVD or lymphadenopathy. Supple, nontender, no meningeal signs. CARDIOVASCULAR: Regular rate and rhythm. Pain to palpation of anterior aspect of chest wall, pain to anterior posterior chest wall compression as well as lateral chest wall compression. RESPIRATORY: Clear to auscultation. Breath sounds equal bilaterally. No wheezes, rales, or rhonchi. No cough. No increased respiratory effort. No accessory muscle use. GASTROINTESTINAL: Abdomen soft, non-tender, nondistended. No hepato- splenomegaly, or palpable masses. No guarding. EXTREMITIES: No clubbing, cyanosis, or edema. No joint tenderness, effusion, or edema noted. Positive pedal pulses. BACK: Nontender without deformity or crepitance. No flank tenderness. NEURO: AOx3. SKIN: No rash or erythema on visible skin Initial Vital Signs Initial Vital Signs: Vital Signs Temperature 98.4 F 03/20/20 12:03 Pulse Rate 88 03/20/20 12:03 Respiratory Rate 16 03/20/20 12:03 Blood Pressure 168/106 H 03/20/20 12:03 Pulse Oximetry 99 03/20/20 12:03 <Bere Florentino DO - Last Filed: 03/20/20 19:59> Initial Vital Signs Initial Vital Signs: Vital Signs Temperature 98.4 F 03/20/20 12:03 Pulse Rate 88 03/20/20 12:03 Respiratory Rate 16 03/20/20 12:03 Blood Pressure 168/106 H 03/20/20 12:03 Pulse Oximetry 99 03/20/20 12:03 Scores <GEO Harrison - Last Filed: 03/20/20 15:55> GCS [place] coma scale eye opening: Spontaneous [place] coma scale verbal response: Orientated [place] coma scale motor response: Obey commands [place] coma scale total score: 15 HEART Score Heart Score history: Slightly Suspicious Heart Score EKG: Normal Heart Score Age: < 45 years old Heart Score risk factors: 1-2 risk factors Heart Score troponin: < or = to normal limit Heart Score Total: 1 Wells' Criteria for PE Clinical signs and symptoms of DVT: No PE is #1 Dx or equally likely: No Heart rate > 100: No Immobilization at least 3 days or surg in previous 4 weeks: No History of PE or DVT: No Hemoptysis: No Malignancy w/Treatment within 6 months or palliative: No Wells' PE Score total: 0 Course <GEO Harrison - Last Filed: 03/20/20 15:55> Orders Ordered: ED Orders 03/20/20 12:07 XR chest 1V Stat NT-proBNP (BNP-Adult 18+) Stat EKG-12 Lead Stat 03/20/20 12:10 Complete Blood Count AUTO DIFF Stat Comprehensive Metabolic Panel Stat Lipase Stat Partial Thromboplastin Time Stat Prothrombin Time INR Stat Troponin & CK Cardiac Panel Stat 03/20/20 13:00 COVID19 Stat 03/20/20 14:38 Troponin & CK Cardiac Panel Stat Discontinued Medications Hydrocodone Bitart/Acetaminophen (Hydrocodone/Acet 5/325 Tablet) 1 tab PO NOW ONE Stop: 03/20/20 15:18 Last Admin: 03/20/20 15:36 Dose: Not Given Documented by: TEMITOPE Cyclobenzaprine HCl (Cyclobenzaprine 10 Mg Tablet) 10 mg PO NOW ONE Stop: 03/20/20 14:01 Last Admin: 03/20/20 14:23 Dose: 10 mg Documented by: TEMITOPE Ketorolac Tromethamine (Ketorolac 60 Mg/2 Ml Vial) 30 mg IV NOW ONE Stop: 03/20/20 13:57 Last Admin: 03/20/20 14:00 Dose: 30 mg Documented by: TEMITOPE Lidocaine (Lidocaine Patch 1 Each Adh..Patch) 1 each TOP NOW ONE Stop: 03/20/20 14:01 Last Admin: 03/20/20 14:23 Dose: 1 each Documented by: TEMITOPE Vital Signs Vital signs: Vital Signs - 8 hr 03/20/20 12:03 03/20/20 13:22 03/20/20 13:26 Temperature 98.4 F Pulse Rate 88 83 85 Respiratory Rate 16 18 Blood Pressure 168/106 H 151/79 H Pulse Oximetry 99 98 97 03/20/20 13:30 03/20/20 14:00 03/20/20 14:30 Temperature Pulse Rate 80 81 78 Respiratory Rate 16 17 17 Blood Pressure 135/87 142/79 H Pulse Oximetry 96 95 97 03/20/20 14:31 03/20/20 15:00 03/20/20 15:30 Temperature Pulse Rate 79 84 81 Respiratory Rate 25 H 24 22 Blood Pressure 143/91 H 139/84 140/87 Pulse Oximetry 97 97 97 03/20/20 16:00 03/20/20 16:30 03/20/20 16:31 Temperature Pulse Rate 79 79 80 Respiratory Rate 19 24 19 Blood Pressure 131/86 132/83 Pulse Oximetry 95 97 96 <Bere Florentino DO - Last Filed: 03/20/20 19:59> Orders Ordered: ED Orders 03/20/20 12:07 XR chest 1V Stat NT-proBNP (BNP-Adult 18+) Stat EKG-12 Lead Stat 03/20/20 12:10 Complete Blood Count AUTO DIFF Stat Comprehensive Metabolic Panel Stat Lipase Stat Partial Thromboplastin Time Stat Prothrombin Time INR Stat Troponin & CK Cardiac Panel Stat 03/20/20 13:00 COVID19 Stat 03/20/20 14:38 Troponin & CK Cardiac Panel Stat Discontinued Medications Hydrocodone Bitart/Acetaminophen (Hydrocodone/Acet 5/325 Tablet) 1 tab PO NOW ONE Stop: 03/20/20 15:18 Last Admin: 03/20/20 15:36 Dose: Not Given Documented by: TEMITOPE Cyclobenzaprine HCl (Cyclobenzaprine 10 Mg Tablet) 10 mg PO NOW ONE Stop: 03/20/20 14:01 Last Admin: 03/20/20 14:23 Dose: 10 mg Documented by: TEMITOPE Ketorolac Tromethamine (Ketorolac 60 Mg/2 Ml Vial) 30 mg IV NOW ONE Stop: 03/20/20 13:57 Last Admin: 03/20/20 14:00 Dose: 30 mg Documented by: TEMITOPE Lidocaine (Lidocaine Patch 1 Each Adh..Patch) 1 each TOP NOW ONE Stop: 03/20/20 14:01 Last Admin: 03/20/20 14:23 Dose: 1 each Documented by: TEMITOPE Vital Signs Vital signs: Vital Signs - 8 hr 03/20/20 12:03 03/20/20 13:22 03/20/20 13:26 Temperature 98.4 F Pulse Rate 88 83 85 Respiratory Rate 16 18 Blood Pressure 168/106 H 151/79 H Pulse Oximetry 99 98 97 03/20/20 13:30 03/20/20 14:00 03/20/20 14:30 Temperature Pulse Rate 80 81 78 Respiratory Rate 16 17 17 Blood Pressure 135/87 142/79 H Pulse Oximetry 96 95 97 03/20/20 14:31 03/20/20 15:00 03/20/20 15:30 Temperature Pulse Rate 79 84 81 Respiratory Rate 25 H 24 22 Blood Pressure 143/91 H 139/84 140/87 Pulse Oximetry 97 97 97 03/20/20 16:00 03/20/20 16:30 03/20/20 16:31 Temperature Pulse Rate 79 79 80 Respiratory Rate 19 24 19 Blood Pressure 131/86 132/83 Pulse Oximetry 95 97 96 MDM - Chest Pain <GEO Harrison - Last Filed: 03/20/20 15:55> Lab Data Attestation: I reviewed the patient's lab results. Result diagrams: 03/20/20 12:10 03/20/20 12:10 Labs: Lab Results 03/20/20 03/20/20 03/20/20 Range/Units 12:07 12:10 12:10 WBC 9.4 (4.5-11.0) X10^3/uL RBC 4.97 (4.5-5.9) X10^6/uL Hgb 15.6 (13.5-17.5) g/dL Hct 44.8 (41-53) % MCV 90.1 (80-100) fL MCH 31.3 (26-34) PG MCHC 34.7 (30-36) % RDW 13.1 (11.6-14.8) % Plt Count 266 (150-400) X10^3/uL Neut % (Auto) 59.5 (50-75) % Lymph % (Auto) 26.9 (25-40) % Barber % (Auto) 10.1 (3-14) % Eos % (Auto) 2.5 (2-4) % Baso % (Auto) 1.0 (0-2) % Neut # (Auto) 5600 (7457-1682) /uL Lymph # (Auto) 2500 (4538-7263) /uL Barber # (Auto) 1000 H (0-900) /uL Eos # (Auto) 200 (0-450) /uL Baso # (Auto) 100 (0-100) /uL PT 10.9 (10.1-12.7) SECONDS INR 0.9 (0.9-1.3) APTT 33 (26.4-36.2) SECONDS Sodium (137-145) mmol/L Potassium (3.4-5.1) mmol/L Chloride (98-107) mmol/L Carbon Dioxide (22-32) mmol/L BUN (9-20) mg/dL Creatinine (0.66-1.25) mg/dL Estimated GFR (>60) mL/min BUN/Creatinine Ratio (6-22) Glucose (70-100) mg/dL Calcium (8.4-10.2) mg/dL Total Bilirubin (0.2-1.3) mg/dL AST (17-59) IU/L ALT (<50) IU/L Alkaline Phosphatase (38-126) U/L Total Creatine Kinase (55-170) U/L CK-MB (CK-2) (<2.37) ng/mL CK-MB (CK-2) Rel Index (1.5-5.0) % Troponin I (0.01-0.034) ng/mL NT-Pro-B Natriuret Pep 33 (<125) pg/mL Total Protein (6.3-8.2) g/dL Albumin (3.5-5.0) g/dL Globulin (1.7-4.1) g/dL Albumin/Globulin Ratio (1.0-2.8) Lipase (23-300) U/L SARS-CoV-2 (PCR) (Negative) 03/20/20 03/20/20 03/20/20 Range/Units 12:10 13:00 14:38 WBC (4.5-11.0) X10^3/uL RBC (4.5-5.9) X10^6/uL Hgb (13.5-17.5) g/dL Hct (41-53) % MCV (80-100) fL MCH (26-34) PG MCHC (30-36) % RDW (11.6-14.8) % Plt Count (150-400) X10^3/uL Neut % (Auto) (50-75) % Lymph % (Auto) (25-40) % Barber % (Auto) (3-14) % Eos % (Auto) (2-4) % Baso % (Auto) (0-2) % Neut # (Auto) (0030-4527) /uL Lymph # (Auto) (6446-5945) /uL Barber # (Auto) (0-900) /uL Eos # (Auto) (0-450) /uL Baso # (Auto) (0-100) /uL PT (10.1-12.7) SECONDS INR (0.9-1.3) APTT (26.4-36.2) SECONDS Sodium 136 L (137-145) mmol/L Potassium 4.3 (3.4-5.1) mmol/L Chloride 104 (98-107) mmol/L Carbon Dioxide 27 (22-32) mmol/L BUN 19 (9-20) mg/dL Creatinine 0.76 (0.66-1.25) mg/dL Estimated GFR > 60.0 (>60) mL/min BUN/Creatinine Ratio 25.0 H (6-22) Glucose 100 (70-100) mg/dL Calcium 9.5 (8.4-10.2) mg/dL Total Bilirubin 0.6 (0.2-1.3) mg/dL AST 37 (17-59) IU/L ALT 23 (<50) IU/L Alkaline Phosphatase 57 (38-126) U/L Total Creatine Kinase 126 115 (55-170) U/L CK-MB (CK-2) 1.69 1.46 (<2.37) ng/mL CK-MB (CK-2) Rel Index 1.3 L 1.3 L (1.5-5.0) % Troponin I < 0.012 < 0.012 (0.01-0.034) ng/mL NT-Pro-B Natriuret Pep (<125) pg/mL Total Protein 7.9 (6.3-8.2) g/dL Albumin 4.6 (3.5-5.0) g/dL Globulin 3.3 (1.7-4.1) g/dL Albumin/Globulin Ratio 1.4 (1.0-2.8) Lipase 56 (23-300) U/L SARS-CoV-2 (PCR) Negative (Negative) Imaging Data Chest x-ray: Radiologist's Impression: [address] [place] [address] [id number] ReportSigned Patient: Praneeth Man [facility]#: [id number]: 1975Acct:[id number]/Sex: 45 / MDate of Service: 03/20/20Loc: EDAccession Number: [id number] Procedure: XR chest 1V Ordering Provider: Bere Florentino D.O. PROCEDURE: XR CHEST 1V INDICATIONS: chest pain TECHNIQUE: One view of the chest was acquired. COMPARISON: [facility], CHEST 2 VIEW, 12/05/2016, 18:21. FINDINGS: Surgical changes and devices: None. Lungs and pleura: Lungs are clear. No pleural effusions or pneumothorax. Mediastinum: Mediastinal contours appear normal. Heart size is normal. Bones and chest wall: No suspicious bony lesions. Overlying soft tissues appear unremarkable. IMPRESSION: No acute cardiopulmonary abnormality. Dictated by: Kike Mcqueen M.D. on 03/20/2020 at 12:39 Approved by: Kike Mcqueen M.D. on 03/20/2020 at 12:40 ECG Data Attestation: I personally reviewed and interpreted this ECG as follows: Interpretation: Sinus rhythm. Ventricular rate 77. P.r. interval 166. QRS 106. EKG 2. At 1:[address] Florentino Sinus rhythm, ventricular rate 84. P.r. interval 158. QRS 106. LVH noted. Possible ST changes in single beat. Viewed by Dr. Florentino EKG 12:19 MDM Narrative Medical decision making narrative: The patient is a 45-year-old male who presents with a chief complaint of chest pain for the past 2 days. His troponin is negative initially, repeat EKGs have no acute findings, repeat troponin is also negative. The patient states that this pain is consistent with previous episode of costal chondritis, which correlates with his exam of pain to palpation of costochondral joints. Unfortunately he has to drive home, so we cannot trial stronger pain medicine the emergency department. Patient was given prescriptions of ketorolac, Waverly, lidocaine patches. I discussed at length strict return precautions to the emergency department as well as follow-up with primary care provider in the next few days. Patient has no questions or concerns upon discharge and states understanding return precautions as well as follow-up care. <Bere Florentino, DO - Last Filed: 03/20/20 19:59> Lab Data Labs: Lab Results 03/20/20 03/20/20 03/20/20 Range/Units 12:07 12:10 12:10 WBC 9.4 (4.5-11.0) X10^3/uL RBC 4.97 (4.5-5.9) X10^6/uL Hgb 15.6 (13.5-17.5) g/dL Hct 44.8 (41-53) % MCV 90.1 (80-100) fL MCH 31.3 (26-34) PG MCHC 34.7 (30-36) % RDW 13.1 (11.6-14.8) % Plt Count 266 (150-400) X10^3/uL Neut % (Auto) 59.5 (50-75) % Lymph % (Auto) 26.9 (25-40) % Barber % (Auto) 10.1 (3-14) % Eos % (Auto) 2.5 (2-4) % Baso % (Auto) 1.0 (0-2) % Neut # (Auto) 5600 (2394-8819) /uL Lymph # (Auto) 2500 (0332-7763) /uL Barber # (Auto) 1000 H (0-900) /uL Eos # (Auto) 200 (0-450) /uL Baso # (Auto) 100 (0-100) /uL PT 10.9 (10.1-12.7) SECONDS INR 0.9 (0.9-1.3) APTT 33 (26.4-36.2) SECONDS Sodium (137-145) mmol/L Potassium (3.4-5.1) mmol/L Chloride (98-107) mmol/L Carbon Dioxide (22-32) mmol/L BUN (9-20) mg/dL Creatinine (0.66-1.25) mg/dL Estimated GFR (>60) mL/min BUN/Creatinine Ratio (6-22) Glucose (70-100) mg/dL Calcium (8.4-10.2) mg/dL Total Bilirubin (0.2-1.3) mg/dL AST (17-59) IU/L ALT (<50) IU/L Alkaline Phosphatase (38-126) U/L Total Creatine Kinase (55-170) U/L CK-MB (CK-2) (<2.37) ng/mL CK-MB (CK-2) Rel Index (1.5-5.0) % Troponin I (0.01-0.034) ng/mL NT-Pro-B Natriuret Pep 33 (<125) pg/mL Total Protein (6.3-8.2) g/dL Albumin (3.5-5.0) g/dL Globulin (1.7-4.1) g/dL Albumin/Globulin Ratio (1.0-2.8) Lipase (23-300) U/L SARS-CoV-2 (PCR) (Negative) 03/20/20 03/20/20 03/20/20 Range/Units 12:10 13:00 14:38 WBC (4.5-11.0) X10^3/uL RBC (4.5-5.9) X10^6/uL Hgb (13.5-17.5) g/dL Hct (41-53) % MCV (80-100) fL MCH (26-34) PG MCHC (30-36) % RDW (11.6-14.8) % Plt Count (150-400) X10^3/uL Neut % (Auto) (50-75) % Lymph % (Auto) (25-40) % Barber % (Auto) (3-14) % Eos % (Auto) (2-4) % Baso % (Auto) (0-2) % Neut # (Auto) (4458-8327) /uL Lymph # (Auto) (2924-9526) /uL Barber # (Auto) (0-900) /uL Eos # (Auto) (0-450) /uL Baso # (Auto) (0-100) /uL PT (10.1-12.7) SECONDS INR (0.9-1.3) APTT (26.4-36.2) SECONDS Sodium 136 L (137-145) mmol/L Potassium 4.3 (3.4-5.1) mmol/L Chloride 104 (98-107) mmol/L Carbon Dioxide 27 (22-32) mmol/L BUN 19 (9-20) mg/dL Creatinine 0.76 (0.66-1.25) mg/dL Estimated GFR > 60.0 (>60) mL/min BUN/Creatinine Ratio 25.0 H (6-22) Glucose 100 (70-100) mg/dL Calcium 9.5 (8.4-10.2) mg/dL Total Bilirubin 0.6 (0.2-1.3) mg/dL AST 37 (17-59) IU/L ALT 23 (<50) IU/L Alkaline Phosphatase 57 (38-126) U/L Total Creatine Kinase 126 115 (55-170) U/L CK-MB (CK-2) 1.69 1.46 (<2.37) ng/mL CK-MB (CK-2) Rel Index 1.3 L 1.3 L (1.5-5.0) % Troponin I < 0.012 < 0.012 (0.01-0.034) ng/mL NT-Pro-B Natriuret Pep (<125) pg/mL Total Protein 7.9 (6.3-8.2) g/dL Albumin 4.6 (3.5-5.0) g/dL Globulin 3.3 (1.7-4.1) g/dL Albumin/Globulin Ratio 1.4 (1.0-2.8) Lipase 56 (23-300) U/L SARS-CoV-2 (PCR) Negative (Negative) Discharge Plan Departure Patient Disposition: Home Clinical Impression: Costochondritis, Chest pain, atypical Instructions: DI for Atypical Chest Pain, DI for Costochondritis Activity Restrictions/Additional Instructions: Thank you for trusting us with your care today. As discussed, your cardiac evaluation resulted well. However your exam is concerning for something call costochondritis which is inflammation of the costochondral joints. I have included a handout for it. [facility] I have given you a prescription of Toradol. This is an NSAID. Do not combine it with other NSAIDs such as Aleve or ibuprofen. I suggest taking it with some food, as it can irritate your stomach. I have given you a prescription of a narcotic for pain. Be aware that this can be constipating and sedating. I encouraged taking with a stool softener, pushing fluids and fiber. Do not take and drive, operate heavy machinery, etc. Do not combine it with any other sedating substances such as alcohol. The combination of narcotics and alcohol and/or other sedatives can be lethal. As discussed, please follow-up with primary care provider next few days. Please come back to the emergency department for any acute concerns. Prescriptions: New lidocaine 5 % adhesive patch,medicated 1 patch topical DAILY PRN (Reason: pain) Qty: 15 RF: 0 ketorolac 10 mg tablet 10 mg PO TID PRN (Reason: pain) Qty: 15 RF: 0 hydrocodone-acetaminophen [Waverly] 5-325 mg tablet 1 tab PO Q4-6H PRN (Reason: pain) Qty: 10 RF: 0 No Action albuterol sulfate 90 mcg/actuation HFA aerosol inhaler 2 puff INHALATION Q4-6H PRN (Reason: shortness of breath or wheezing) Qty: 18 RF: 0 Referrals: [facility] [Outside] Cecilia Levine PA-C [Advanced Pilot Manager] - <Bere Florentino DO - Last Filed: 03/20/20 19:59> Cosign ED Attending Michelleature Attestation: I was immediately available in the department for consultation. Documentation has been reviewed.
[2020-03-20 13:10] LABS: Troponin I < 0.012 ng/mL (0.01-0.034)
[2020-03-20 13:13] LABS: CKMB % Relative Index 1.3 % (1.5-5.0); Creatine Kinase MB 1.69 ng/mL (<2.37); HEMOLYSIS 18 (0-50)
[2020-03-20 13:17] LABS: NT-proBNP (BNP-Adult 18+) 33 pg/mL (<125)
[2020-03-20 13:26] LABS: COVID19 -Nasal RAPID Negative (Negative)
[2020-03-20] MEDS: KETOROLAC 60 MG/2 ML VIAL 30 MG IV (14:00)
[2020-03-20] MEDS: CYCLOBENZAPRINE 10 MG TABLET PO (14:23)
[2020-03-20] MEDS: LIDOCAINE PATCH 1 EACH ADH..PATCH TOP (14:23)
[2020-03-20 14:54] LABS: Creatine Kinase 115 U/L (55-170)
[2020-03-20 15:07] LABS: Troponin I < 0.012 ng/mL (0.01-0.034)
[2020-03-20 15:10] LABS: CKMB % Relative Index 1.3 % (1.5-5.0); Creatine Kinase MB 1.46 ng/mL (<2.37)
== END 2020-03-20 17:10 | disposition home or self-care (01) ==
PROVIDERS: Emergency Medicine; Emergency Provider Nurse Practitioner Family
DX: M94.0 Chondrocostal junction syndrome [Tietze] (principal); R07.89 Other chest pain; I10 Essential (primary) hypertension; Z20.822 Contact with and (suspected) exposure to COVID-19
CPT/HCPCS: 36415; 71045; 80053; 82550; 82553; 83690; 83880; 84484; 85025; 85610; 85730; 87635; 93005; 93010; 96374; 99283; 99284; C9803; J1885

== ENCOUNTER → 2020-03-31 13:48 | Outpatient (CLI) | payer OTHER, MEDICAID, SELFPAY ==
[2020-03-31 14:53] LABS: Cholesterol 225 mg/dL (140-199); HDL Cholesterol 38 mg/dL (40-60); Triglycerides 458 mg/dL (35-150)
[2020-03-31 16:30] LABS: Vitamin B12 506 pg/mL (239-931)
== END ==
PROVIDERS: PCP Student in an Organized Health Care Education/Training Program; Referring Provider Student in an Organized Health Care Education/Training Program; Visit Provider Student in an Organized Health Care Education/Training Program
DX: G62.9 Polyneuropathy, unspecified (principal); E55.9 Vitamin D deficiency, unspecified; Z13.220 Encounter for screening for lipoid disorders
CPT/HCPCS: 36415; 80061; 82306; 82607

== ENCOUNTER 2020-06-27 12:07 | Emergency (ER) | payer OTHER, MEDICAID, SELFPAY ==
[2020-06-27] VITALS (8 sets, daily range): BP systolic 125–167; BP diastolic 80–102; PULSE 61–79; RESP 16; TEMP 36.7; O2SAT 96–99; BMI 30.8
[2020-06-27 12:44] LABS: INR 0.9 (0.9-1.3); Prothrombin Time 10.8 SECONDS (10.1-12.7)
[2020-06-27 12:46] LABS: PTT Partial Thromboplastin Tim 34 SECONDS (26.4-36.2)
[2020-06-27 12:48] LABS: Alanine Aminotransferase 25 IU/L (<50); Albumin 4.7 g/dL (3.5-5.0); Albumin Globulin Ratio 1.5 (1.0-2.8); Alkaline Phosphatase 61 U/L (38-126); Aspartate Aminotransferase 33 IU/L (17-59); BUN Creatinine Ratio 14.7 (6-22); Bilirubin Total 0.4 mg/dL (0.2-1.3); Blood Urea Nitrogen 11 mg/dL (9-20); Calcium 9.8 mg/dL (8.4-10.2); Carbon Dioxide 27 mmol/L (22-32); Chloride 104 mmol/L (98-107); Estimated Glomerular Filt Rate > 60.0 mL/min (>60); Globulin 3.1 g/dL (1.7-4.1); Glucose 117 mg/dL (70-100); HEMOLYSIS < 15 (0-50); Lipase 47 U/L (23-300); Sodium 137 mmol/L (137-145); Total Protein 7.8 g/dL (6.3-8.2)
[2020-06-27 12:49] LABS: Add Manual Diff / Slide Review NO; Basophils Absolute Auto 0 /uL (0-100); Basophils Percent Auto 0.4 % (0-2); Eosinophils Absolute Auto 200 /uL (0-450); Eosinophils Percent Auto 3.4 % (2-4); Hematocrit 45.2 % (41-53); Hemoglobin 15.4 g/dL (13.5-17.5); Lymphocytes Absolute Auto 2200 /uL (1100-4500); Lymphocytes Percent Auto 30.8 % (25-40); Mean Corpuscular Hemoglobin 31.3 PG (26-34); Mean Corpuscular Volume 91.8 fL (80-100); Monocytes Absolute Auto 600 /uL (0-900); Monocytes Percent Auto 7.8 % (3-14); Neutrophils Absolute Auto 4100 /uL (1500-7000); Neutrophils Percent Auto 57.6 % (50-75); Platelet Count 312 X10^3/uL (150-400); Red Blood Cell Count 4.92 X10^6/uL (4.5-5.9); White Blood Cell Count 7.1 X10^3/uL (4.5-11.0)
--- NOTE | 2020-06-27 13:52 | ED.ABDPAIN ---
HPI - Abdominal Pain General Chief Complaint: Abdominal Pain Stated Complaint: Severe Lower Abd/Groin Pain X2 Time Seen by Provider: 06/27/20 13:51 Source: patient Mode of arrival: Wheelchair Limitations: no limitations History of Present Illness HPI narrative: This is a 45-year-old male comes emergency department with complaint of right lower abdominal/groin pain. Patient states it has been present for about 2 ways. He states it started in the groin. It states it felt like he got kicked in the testicles but he does not actually have any testicular pain. Patient states that it radiates kind of up towards his waistline. It started to radiate a little bit towards his flank on the right. He states that it is sort of above the groin and the pelvis. Patient has not had any fevers or chills. He has not had any cold, cough or congestion. He denies any chest pain or shortness of breath. He has had nausea but no vomiting. He had normal bowel movement today with no melena or hematochezia. He has had normal urination with no frequency, dysuria sense of urgency or discharge. He denies any testicular pain. Patient states he has not had similar symptoms in the past. He does note he has been regularly lifting up to 150 lb on the last several days but did not appreciate any acute pain or injury at that time. This is not a normal activity for him. He denies any other medical issues. Denies any prior surgeries. He is allergic to penicillin. He does smoke, he uses alcohol intermittently denies any illicit. He is accompanied by his fiancee. Related Data Previous Rx's Medication Instructions Recorded lidocaine 1 patch TOPICAL DAILY PRN #15 ea 03/20/20 prednisone 20 mg tablet 20 mg PO DAILY #10 tab 03/31/20 diazepam [Valium] 10 mg PO TID PRN #14 tab 06/27/20 hydrocodone-acetaminophen 1 tab PO QID PRN #10 tab 06/27/20 Allergies Allergy/AdvReac Type Severity Reaction Status Date / Time Penicillins [PENICILLINS] Allergy Unknown Verified 03/31/20 12:45 Review of Systems Review of Systems ROS Unobtainable: All systems reviewed & are unremarkable except as noted in HPI and below Patient History Medical History Cellulitis of foot Chronic back pain (~2013) H/O pyloric stenosis Hearing loss Open fracture dislocation of toe Vision disorder Surgical History Anesthesia H/O lateral meniscus repair of left knee (~2011) H/O lateral meniscus repair of right knee (~2012) History of knee surgery (~2013) Family History Father Hypertension Cancer Mother Total knee replacement status Social History household members: family and children Smoking Status: Current every day smoker Tobacco: How many years used: 8 alcohol intake: current Smoking Status: Current every day smoker tobacco type: cigarettes and vaping alcohol intake frequency: a few times a week Substance Use Type: does not use Exam Narrative Exam Narrative: GENERAL: Alert and oriented x three, well-nourished male in moderate distress. HEENT: Head normocephalic, atraumatic, EOMI, pupils reactive, face symmetric, moist mucous membranes NECK: Supple, full range of motion CARDIOVASCULAR: Regular rate and rhythm without murmurs, rubs or gallops. RESPIRATORY: Breath sounds equal bilaterally, no wheezes rales or rhonchi. ABDOMEN: Soft, nontender to palpation. Normoactive bowel sounds all 4 quadrants. No guarding or rebound, rigidity, no mass. No inguinal mass. No swelling. Patient indicates that the right groin and right lower pelvic region is where his discomfort is but I am unable to reproduce it. He does appreciate some increased discomfort on the right lower quadrant when I palpate on the left lower quadrant. : No CVA tenderness. Male: normal external examination, no penile discharge or lesions, testicles non-tender to palpation, no inguinal hernias noted. EXTREMITIES: Normal range of motion, no clubbing or edema. Neurovascularly intact NEUROLOGICAL: Cranial nerves II through XII grossly intact. Moving all extremities SKIN: Warm, dry, no petechiae, no rashes or lesions. Initial Vital Signs Initial Vital Signs: Vital Signs Temperature 98.0 F 06/27/20 12:10 Pulse Rate 79 06/27/20 12:10 Respiratory Rate 16 06/27/20 12:10 Blood Pressure 150/96 H 06/27/20 12:10 Pulse Oximetry 98 04/18/21 12:10 Course Orders Ordered: ED Orders 06/27/20 12:25 Complete Blood Count AUTO DIFF Stat Comprehensive Metabolic Panel Stat Lipase Stat Partial Thromboplastin Time Stat Prothrombin Time INR Stat 06/27/20 14:06 CT abdomen pelvis w con Stat Discontinued Medications Sodium Chloride (Normal Saline 0.9%) 1,000 mls @ 1,000 mls/hr IV BOLUS ONE Stop: 06/27/20 15:05 Last Infusion: 06/27/20 15:36 Dose: 0 mls/hr Documented by: Admin: 06/27/20 14:15 Dose: 1,000 mls/hr Documented by: DUONG Ketorolac Tromethamine (Ketorolac 60 Mg/2 Ml Vial) 30 mg IV NOW ONE Stop: 06/27/20 14:07 Last Admin: 06/27/20 14:16 Dose: 30 mg Documented by: DUONG Ondansetron HCl (Ondansetron 4 Mg/2 Ml Inj) 4 mg IV NOW ONE Stop: 06/27/20 14:07 Last Admin: 06/27/20 14:16 Dose: 4 mg Documented by: DUONG Ondansetron HCl (Ondansetron 4 Mg Odt Prepack) 1 bottle MISC SEEINSTR ONE Stop: 06/27/20 18:23 Last Admin: 06/27/20 19:23 Dose: 1 bottle Documented by: SAVAGE Pantoprazole Sodium (Pantoprazole 40 Mg Vial) 40 mg IV NOW ONE Stop: 06/27/20 14:45 Last Admin: 06/27/20 15:38 Dose: Not Given Documented by: DUONG Reevaluation(s) Reevaluation #1: Patient had some improvement with Toradol but is having some recurrence after attempting to lay flat her period of time. We did review review patient's discomfort I was not able to recreated except when I pushed on the left he had pain on the right. Otherwise I was unable to recreate his pain with palpation of the right side the right groin, he did not have any pain in the testicle or scrotum. Discussed patient may have more of a muscular strain with his recent heavy lifting. He does have bilateral inguinal hernias but I am not able to reproduce his pain with palpation in that region. Patient I also discussed he has some lower back changes which are degenerative which could be causing some of his discomfort. This is possibly the source of his pain is well. Plan for muscle relaxer, ibuprofen and if inadequate to add another narcotic pain medication in addition. Return precautions were discussed and patient expresses understanding. Time: 15:59 Vital Signs Vital signs: Vital Signs - 8 hr 06/27/20 12:10 06/27/20 12:37 06/27/20 13:00 Temperature 98.0 F Pulse Rate 79 73 71 Respiratory Rate 16 16 Blood Pressure 150/96 H 139/80 141/84 H Pulse Oximetry 98 96 96 06/27/20 14:39 06/27/20 14:40 06/27/20 15:00 Temperature Pulse Rate 67 66 61 Respiratory Rate Blood Pressure 167/102 H Pulse Oximetry 99 97 98 06/27/20 15:01 06/27/20 16:34 Temperature Pulse Rate 63 63 Respiratory Rate 16 Blood Pressure 125/82 128/88 Pulse Oximetry 97 99 MDM - Abdominal Pain Lab Data Attestation: I reviewed the patient's lab results. Result diagrams: 06/27/20 12:25 06/27/20 12:25 Labs: Lab Results 06/27/20 06/27/20 06/27/20 Range/Units 12:25 12:25 12:25 WBC 7.1 (4.5-11.0) X10^3/uL RBC 4.92 (4.5-5.9) X10^6/uL Hgb 15.4 (13.5-17.5) g/dL Hct 45.2 (41-53) % MCV 91.8 (80-100) fL MCH 31.3 (26-34) PG MCHC 34.0 (30-36) % RDW 13.0 (11.6-14.8) % Plt Count 312 (150-400) X10^3/uL Neut % (Auto) 57.6 (50-75) % Lymph % (Auto) 30.8 (25-40) % [place] % (Auto) 7.8 (3-14) % Eos % (Auto) 3.4 (2-4) % Baso % (Auto) 0.4 (0-2) % Neut # (Auto) 4100 (0324-0465) /uL Lymph # (Auto) 2200 (5985-2324) /uL [place] # (Auto) 600 (0-900) /uL Eos # (Auto) 200 (0-450) /uL Baso # (Auto) 0 (0-100) /uL PT 10.8 (10.1-12.7) SECONDS INR 0.9 (0.9-1.3) APTT 34 (26.4-36.2) SECONDS Sodium 137 (137-145) mmol/L Potassium 4.0 (3.4-5.1) mmol/L Chloride 104 (98-107) mmol/L Carbon Dioxide 27 (22-32) mmol/L BUN 11 (9-20) mg/dL Creatinine 0.75 (0.66-1.25) mg/dL Estimated GFR > 60.0 (>60) mL/min BUN/Creatinine Ratio 14.7 (6-22) Glucose 117 H (70-100) mg/dL Calcium 9.8 (8.4-10.2) mg/dL Total Bilirubin 0.4 (0.2-1.3) mg/dL AST 33 (17-59) IU/L ALT 25 (<50) IU/L Alkaline Phosphatase 61 (38-126) U/L Total Protein 7.8 (6.3-8.2) g/dL Albumin 4.7 (3.5-5.0) g/dL Globulin 3.1 (1.7-4.1) g/dL Albumin/Globulin Ratio 1.5 (1.0-2.8) Lipase 47 (23-300) U/L Point of care testing: Urine Dip Bedside Urine Glucose Negative Bedside Urine Bilirubin - Negative Bedside Urine Ketone - Negative Urine Specific [place] 1.015 Bedside Urine Occult Blood - Negative Bedside Urine pH 7.0 Bedside Urine Protein - Negative Bedside Urine Urobilinogen - Negative Bedside Urine Nitrite - Negative Bedside Urine Leukocytes - Negative Esterase Imaging Data CT scan - abdomen/pelvis: Radiologist's Impression: [address] [id number] Scan ReportSigned Patient: Praneeth Mna [facility]#: [id number]: 1975Acct:[id number]/Sex: 45 / MDate of Service: 06/27/20Loc: EDAccession Number: [id number] Procedure: CT abdomen pelvis w con Ordering Provider: Bere Florentino D.O. PROCEDURE: CT ABDOMEN PELVIS W CON INDICATIONS: RLQ/Groin pain TECHNIQUE: After the administration of intravenous contrast, 5 mm thick sections acquired from the diaphragm to the symphysis. 5 mm coronal and sagittal reformats were acquired. For radiation dose reduction, the following was used: automated exposure control, adjustment of mA and/or kV according to patient size. COMPARISON: [facility], CT, ABD/PELVIS W/CON (PNL), 04/20/2014, 16:31. FINDINGS: Image quality: Excellent. ABDOMEN: Lung bases: Lung bases are clear. Heart size is normal. Solid organs: Unchanged hypodensity within the right lobe of the liver which measures slightly greater than simple free fluid. This measures 3.2 by 2.5 centimeters. Additional hypodensity within the right lobe of the liver is again noted previously characterized as a hemangioma. Gallbladder unremarkable. Biliary system is non dilated. Pancreas enhances normally. Spleen is normal in size and enhancement. No adrenal nodules. Kidneys demonstrate normal size and enhancement, without hydronephrosis. Peritoneum and bowel: Bowel loops demonstrate normal wall thickness and caliber. No free fluid or air. The appendix is normal. Nodes and vessels: No retroperitoneal or mesenteric adenopathy by size criteria. Aorta and inferior vena cava are normal in size. Miscellaneous: No ventral hernias. PELVIS: Genitourinary: Bladder wall thickness is normal. Miscellaneous: Small fat containing inguinal hernias. Bones: No suspicious bony lesions. Mild degenerative changes of the hips. Grade 1 retrolisthesis of L4 on L5. Intervertebral disc space loss and vacuum disc phenomenon is noted at L4-L5 and L5-S1. No vertebral body compression fractures. IMPRESSION: No evidence of an acute intra-abdominal/pelvic abnormality. Small fat containing inguinal hernias. Dictated by: Aiden Resendez D.O. on 06/27/2020 at 14:39 Approved by: Aiden Resendez D.O. on 06/27/2020 at 14:48 Discharge Plan Departure Patient Disposition: Home Clinical Impression: Deep right inguinal pain, Hemangioma of liver, Retrolisthesis of vertebrae Bilateral inguinal hernia Qualifiers: Recurrence: not specified as recurrent Activity Restrictions/Additional Instructions: Your imaging today shows several changes including possible hemangioma in the right liver which is noted on prior imaging. You also have degenerative changes of the hips as well as in the lower vertebral L4/L5 region. Your imaging does show bilateral small fat containing inguinal hernias. This may be a source of your right sided abdominal pain but is present on both sides. May be incidental findings and your pain may also be from a groin strain or pull. Please take muscle relaxer as prescribed. Medication can make you sleepy do not drive, perform hazardous activities or make any major decisions. You may take ibuprofen up to 800 mg every 8 hours as needed with this medication. If this is in the adequate take 1-2 tablets of narcotic pain medication every 6 hours as needed for pain. This medication can make you sleepy do not drive, perform hazardous activities or make any major decisions while taking this medication. It will also make you constipated so make sure to take a stool softener 1-2 times daily until stools are soft and regular. [facility] [place] Please return for fevers, rapidly worsening abdominal, back flank pain, persistent vomiting, lightheadedness or passing out, new or worsening chest pain, shortness of breath, black or bloody stools, difficulty with urination, loss of bowel or bladder control or other new or concerning symptoms. Prescriptions: New diazepam [Valium] 10 mg tablet 10 mg PO TID PRN (Reason: muscle spasm) Qty: 14 RF: 0 hydrocodone-acetaminophen 5-325 mg tablet 1 tab PO QID PRN (Reason: pain) Qty: 10 RF: 0 No Action prednisone 20 mg tablet 20 mg PO DAILY Qty: 10 RF: 0 lidocaine 5 % adhesive patch,medicated 1 patch topical DAILY PRN (Reason: pain) Qty: 15 RF: 0 Referrals: Wilber Rosenthal MD [Primary Care Provider] - Stand Alone Forms: Work Release Note
--- NOTE | 2020-06-27 14:06 | DI.CT.S_ITS ---
PROCEDURE: CT ABDOMEN PELVIS W CON INDICATIONS: RLQ/Groin pain TECHNIQUE: After the administration of intravenous contrast, 5 mm thick sections acquired from the diaphragm to the symphysis. 5 mm coronal and sagittal reformats were acquired. For radiation dose reduction, the following was used: automated exposure control, adjustment of mA and/or kV according to patient size. COMPARISON: [facility], CT, ABD/PELVIS W/CON (PNL), 04/20/2014, 16:31. FINDINGS: Image quality: Excellent. ABDOMEN: Lung bases: Lung bases are clear. Heart size is normal. Solid organs: Unchanged hypodensity within the right lobe of the liver which measures slightly greater than simple free fluid. This measures 3.2 by 2.5 centimeters. Additional hypodensity within the right lobe of the liver is again noted previously characterized as a hemangioma. Gallbladder unremarkable. Biliary system is non dilated. Pancreas enhances normally. Spleen is normal in size and enhancement. No adrenal nodules. Kidneys demonstrate normal size and enhancement, without hydronephrosis. Peritoneum and bowel: Bowel loops demonstrate normal wall thickness and caliber. No free fluid or air. The appendix is normal. Nodes and vessels: No retroperitoneal or mesenteric adenopathy by size criteria. Aorta and inferior vena cava are normal in size. Miscellaneous: No ventral hernias. PELVIS: Genitourinary: Bladder wall thickness is normal. Miscellaneous: Small fat containing inguinal hernias. Bones: No suspicious bony lesions. Mild degenerative changes of the hips. Grade 1 retrolisthesis of L4 on L5. Intervertebral disc space loss and vacuum disc phenomenon is noted at L4-L5 and L5-S1. No vertebral body compression fractures. IMPRESSION: No evidence of an acute intra-abdominal/pelvic abnormality. Small fat containing inguinal hernias. Dictated by: Aiden Resendez D.O. on 06/27/2020 at 14:39 Approved by: Aiden Resendez D.O. on 06/27/2020 at 14:48
[2020-06-27] MEDS: SODIUM CHLORIDE 0.9% 1,000 ML 1000 ML IV (14:15)
[2020-06-27] MEDS: ONDANSETRON 4 MG/2 ML INJ IV (14:16)
[2020-06-27] MEDS: KETOROLAC 60 MG/2 ML VIAL 30 MG IV (14:16)
[2020-06-27] MEDS: ONDANSETRON 4 MG ODT PREPACK 1 BOTTLE MISC (19:23)
== END 2020-06-27 16:34 | disposition home or self-care (01) ==
PROVIDERS: Emergency Provider Emergency Medicine; PCP Student in an Organized Health Care Education/Training Program
DX: D18.03 Hemangioma of intra-abdominal structures (principal); K40.20 Bilateral inguinal hernia, without obstruction or gangrene, not specified as recurrent; M43.10 Spondylolisthesis, site unspecified; R10.31 Right lower quadrant pain
CPT/HCPCS: 36415; 74177; 80053; 81003; 83690; 85025; 85610; 85730; 96361; 96374; 96375; 99284; J1885; J2405; Q9967